=== PATIENT | male | born 1940 | race Caucasian/White ===

== ENCOUNTER 2024-11-07 08:39 | Emergency (ER) | payer MEDICARE, OTHER ==
[~2024-11-07] VITALS: Ht 180.3 cm; Wt 65.2 kg
--- NOTE | 2024-11-07 10:33 | Physician Documentation ---
History of Present Illness ~ Chief Complaint: Bite-insect Stated Complaint: TICK REMOVAL Time Seen by MD: 09:09 Primary Medical Doctor: erick whelan HPI 84-year-old male reports a chief complaint of possible tick exposure. Patient states he is concerned that he may have tics on my face and my back. Patient states he is visiting from [facility] and states that he [place] Patient states he believes he has a tick on the left side of the face and on his lower back. Patient did not see the take but states he feels close symptoms my face. Currently denies fevers or chills. Denies active drainage or discharge. No other complaints at this time Tetanus within 5 years?: Yes Medication Reconciliation Allergies: Coded Allergies: No Known Allergies (Unverified , 11/07/24) Physical Exam Vital Signs: Temperature: 97.8, Source: Oral, Heart Rate: 61, Respiratory Rate: 18, BP: 132/69, Pulse Oximetry: 99, Weight: 65.200 Oxygen Flow Rate: 0 Physical Exam General: Well developed, well nourished, no distress. HEENT: Atraumatic, normal conjunctiva, moist mucous membranes. Neck: Full range of motion, supple. Respiratory: Lungs clear, no respiratory distress. Chest: No accessory muscle use, nontender. Cardiovascular: Regular rate and rhythm. Gastrointestinal: Soft, nontender, nondistended. Bowel sounds present. Extremities: Normal range of motion, nontender, normal capillary refill, no deformity. Back: No midline tenderness, no CVA tenderness. Neurologic: Oriented x4. Distal gross motor and sensory intact all four extremities. Moves all 4 extremities spontaneously. Psychiatric: Normal mood and affect. Skin: Left mandibular arch is positive for a hyperpigmented skin region measuring 2 mm x 2 mm with irregular borders and sandpaper-like. Negative for erythema, active drainage or discharge or vesicles. Negative for tenderness to palpation. The lower buttock region at the gluteal cleft is positive for a 3 mm by 3 mm nonmobile P shaped indurated mass with very minimal erythema. Positive very minimal tenderness to palpation. Negative vesicles or lesions or tenderness. Progress Results/Orders Results/Orders Vital Signs 11/07/24 11/07/24 08:41 09:36 Temp 98.0 97.8 Pulse 63 61 Resp 15 18 B/P (MAP) 137/70 132/69 (90) Pulse Ox 100 99 O2 Flow Rate 0 Medical Decision Making Additional info obtained from: old records Findings After detailed discussion and joint medical decision-making, diagnostic and imaging results were discussed with the patient. At this time patient does not appear to have evidence of tics and the lower back/buttock region appears to be the beginning of a small abscess. Patient was given Keflex. In regards to the facial irregularity. It appears that has consistent with a seborrheic keratosis patient advised to follow up with dermatology. ER precautions were given. Patient is stable upon discharge. All patient questions answered to satisfaction Differential Dx:Considerations: Include: Other (Tick bite, suprapubic keratosis, abscess, cellulitis,) Departure Disposition: HOME / SELF CARE / HOMELESS Impression: Primary Impression: Abscess Additional Impression: Seborrheic keratosis Condition: Stable Discharge Instructions: Abscess, Care After Referrals: NO PRIMARY CARE PROVIDER (PCP) Prescriptions Cephalexin*Monohydrate* (Keflex*) 500 Mg Capsule 1 CAP PO Q12H for 10 Days, #20 CAP Prov: EDUARDO HECK 11/07/24 Education Educated: Patient Educated regarding: diagnosis, treatment Signature Scribe Signature: none used Attestation: Scribed for Eduardo Heck by Eduardo VARGAS . 11/07/24 10:48 EDUARDO HECK November 07, 2024 10:33
[2024-11-07] MEDS ORDERED: CEPH-585 PO (10:47)
[2024-11-07 10:55] VITALS: BP 103/66; PULSE 68; RESP 16; TEMP 97.8; O2SAT 98
== END 2024-11-07 10:57 | disposition home or self-care (01) ==
LOC: ER 08:40
DX: L02.31 Cutaneous abscess of buttock (principal); L82.1 Other seborrheic keratosis
CPT/HCPCS: 99283